=== PATIENT | male | born 2000 | race Caucasian/White ===

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

== ENCOUNTER 2019-06-15 18:22 | Emergency (ER) | payer BC, OTHER ==
[2019-06-15 18:26] VITALS: BP 118/63; PULSE 58; TEMP 98.3; BMI 22.9
--- NOTE | 2019-06-16 01:05 | PDOC ---
Documentation entered by [place] SCRIBE, acting as scribe for Jaqueline Chapa MD. Jaqueline Chapa MD: This documentation has been prepared by the scribe, [place] SCRIBE, under my direction and personally reviewed by me in its entirety. I confirm that the documentation accurately reflects all work, treatment, procedures, and medical decision making performed by me. History of Present Illness - General Chief Complaint: Urinary Problem Stated Complaint: pain to suprapubic area History Source: Patient Exam Limitations: No Limitations - History of Present Illness Initial Comments: 06/15/19 20:51 The patient is a 19-year-old male with a past medical history significant for asthma who presents to the emergency department with suprapubic pressure and urinary frequency. The patient reports two days of intermittent episodes of suprapubic pain that is aggravated by laying down or moving around. Denies penile discharge. Denies the history of STI. Denies nausea, vomiting, back pain , dysuria, hematuria, scrotal discomfort/heaviness, constipation, diarrhea. Allergies: NKA Social history: sexually active without protection with a single partner. MArijuan use, social use of alcohol. PCP in the [place]. Past History - Past Medical History Allergies/Adverse Reactions: Allergies Allergy/AdvReac Type Severity Reaction Status Date / Time No Known Allergies Allergy Verified 06/15/19 18:23 Home Medications: Ambulatory Orders NK [No Known Home Medication] 06/15/19 Asthma: Yes COPD: No - Psycho Social/Smoking Cessation Hx Smoking History: Never smoked Have you smoked in the past 12 months: No Hx Alcohol Use: Yes (occasionally) Drug/Substance Use Hx: Yes (Marijuana) Review of Systems - Review of Systems Able to Perform ROS?: Yes Comments:: 06/15/19 20:50 CONSTITUTIONAL: Pt denies Fever, Chills, weakness. HEENT: denies vision changes, sore throat RESPIRATORY: Denies cough, sob, hemoptysis CARDIAC: denies chest pain, palpitations, lightheadedness, leg swelling ABD/GI: denies abd pain, nausea, vomiting, blood per rectum, melena, diarrhea : +suprapubic pain and urinary frequency. denies dysuria, penile discharge MSK: denies back pain, joint swelling SKIN: denies bruising, erythema, rash NEUROLOGICAL: denies headache, numbness, focal weakness, tingling, ataxia, weakness HEMATOLOGICAL: denies anemia, easy bruising, easy bleeding *Physical Exam - Vital Signs Last Vital Signs Temp Pulse Resp BP Pulse Ox 98.3 F 58 L 18 118/63 96 06/15/19 18:23 06/15/19 18:23 06/15/19 18:23 06/15/19 18:23 06/15/19 18:23 - Physical Exam 06/15/19 20:50 GENERAL: The patient is awake, alert, and fully oriented, in no acute distress. HEAD: Normal with no signs of trauma. EYES: Pupils equal, round and reactive to light, extraocular movements intact, sclera anicteric, conjunctiva clear with no pallor. ENT: Ears normal, nares patent, oropharynx clear without exudates. Moist mucous membranes. NECK: Normal range of motion, supple without lymphadenopathy, JVD, or masses. LUNGS: Breath sounds equal, clear to auscultation bilaterally. No wheeze/ crackles. HEART: Regular rate and rhythm, normal S1 and S2 without murmur or rub. ABDOMEN: Soft/nontender/nondistended. BS wnl. No guarding or rebound. : NO scrotal masses or tenderness, no penile lesion or discharge. EXTREMITIES: Normal range of motion, no edema. No clubbing or cyanosis. No cords, erythema, or tenderness. NEUROLOGICAL: Cranial nerves II through XII grossly intact. Normal speech, normal gait. PSYCH: Normal mood, normal affect. SKIN: Warm, Dry, normal turgor, no rashes or lesions noted. ED Treatment Course - ADDITIONAL ORDERS Additional order review: Laboratory Results 06/15/19 19:03 Urine Color Yellow Urine Appearance Clear Urine pH 7.0 Urine Protein Negative Urine Glucose (UA) Negative Urine Ketones Negative Urine Blood Negative Urine Nitrite Negative Urine Bilirubin Negative Urine Urobilinogen 0.2 Ur Leukocyte Esterase Negative ED Progress Note - Progress Note Progress Note: As noted above, this 19-year-old man with no previous history of STI or other infections presents with intermittent suprapubic discomfort. The patient's girlfriend, with whom he is sexually active (no condoms used) has similar symptoms. The patient denies any penile discharge, dysuria, scrotal discomfort or masses. Exam as noted. Urethral swab obtained for chlamydia/GC. Urinalysis is normal Results discussed with the patient. He will be contacted if swab is positive and antibiotics will be sent to his pharmacy. He should plan on follow-up with his general medical doctor. He is also being given referral information for Dr. Pompa, urologist on-call. He should return to the emergency room if he has worsening pain or develops dysuria/penile discharge/fever Discharge - Discharge Information Problems reviewed: Yes Clinical Impression/Diagnosis: Suprapubic discomfort Condition: Stable Disposition: HOME - Follow up/Referral Referrals: Edy Pompa MD [Staff Physician] - - Patient Discharge Instructions Patient Printed Discharge Instructions: DI for Pelvic Pain Additional Instructions: Drink plenty of water Take full course of antibiotics if test is positive Return to ER if you have severe pain, fever or vomiting Follow-up with your general doctor or urologist (Dr. Pompa) if you have persistent pain - Post Discharge Activity
== END 2019-06-15 20:25 | disposition home or self-care (01) ==
LOC: FER 18:22
DX: R10.13 Epigastric pain (principal); J45.909 Unspecified asthma, uncomplicated
CPT/HCPCS: 36415; 81003; 87491; 87591; 99282-25